=== PATIENT | male | born 2000 | race Caucasian/White ===

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

== ENCOUNTER → 2022-05-26 | Outpatient (CLI) | payer OTHER | LOC: RAD 05-25 13:24 | PROVIDERS: ATTEND Orthopaedic Surgery | DX: M79.661 Pain in right lower leg (principal) ==

== ENCOUNTER 2022-06-08 14:22 | Outpatient (RCR) | payer OTHER | END 2022-06-09 | disposition home or self-care (01) | PROVIDERS: ATTEND Orthopaedic Surgery | DX: S83.281D Other tear of lateral meniscus, current injury, right knee, subsequent encounter (principal) ==

== ENCOUNTER 2022-06-24 10:03 | Outpatient (RCR) | payer OTHER | END 2022-07-10 | disposition home or self-care (01) | PROVIDERS: ATTEND Orthopaedic Surgery | DX: S83.281D Other tear of lateral meniscus, current injury, right knee, subsequent encounter (principal); X58.XXXD Exposure to other specified factors, subsequent encounter ==